=== PATIENT | female | born 1955 | race Caucasian/White ===

== ENCOUNTER 2019-07-16 12:30 | Inpatient (IN) | payer MEDICARE, SELFPAY ==
[2019-07-16] VITALS (16 sets, daily range): BP systolic 110–162; BP diastolic 70–96; PULSE 63–84; RESP 14–20; TEMP 36.4–36.6; O2SAT 95–100; BMI 21.6
--- NOTE | ~2019-07-16 | XR_ITS ---
EXAMINATION: XR chest 2V EXAM DATE: 07/16/2019 14:27 INDICATION: Chest pain, hypertension. Dizziness. TECHNIQUE: Frontal and lateral projections of the chest obtained and reviewed. There is no prior ricky dy for comparison. FINDINGS: There is bilateral pleural blunting, could be chronic pleural effusions or chronic bluntin g given the severe hyperinflation. Nodular density left lower lung zone probably chondral cartilage c alcification. Cardiomediastinal silhouette is normal. There is aortic arterial sclerosis. There is no pneumothorax suspected. There are mild bony degenerative changes. IMPRESSION: 1. Left basilar nodular density probably chondral cartilage calcification but if patient has risk fa ctors for lung cancer consider follow-up noncontrast chest CT. 2. Hyperinflation 3. Pleural blunting likely chronic, possible small effusions. 4. No acute cardiopulmonary findings suspected. Reviewed, dictated and finalized at location A. GRINDER IMPRESSION: 1. Left basilar nodular density probably chondral cartilage calcification but if patient has risk factors for lung cancer consider follow-up noncontrast ches t CT. 2. Hyperinflation 3. Pleural blunting likely chronic, possible small effusions. 4. No acute cardiopulmonary findings suspected.
--- NOTE | 2019-07-16 12:41 | ECG_ITS ---
Measurements Intervals [place] Rate: 73 P: 84 UT: 136 QRS: 21 QRSD: 78 T: 43 QT: 398 QTc: 441 Interpretive Statements SINUS RHYTHM POSSIBLE LEFT ATRIAL ENLARGEMENT BORDERLINE ECG Electronically Signed On 07-16-2019 14:47:39 OXYHYDROGEN WELDER by David Munoz D.O.
[2019-07-16 12:57] LABS: Basophils Absolute Auto 0.1 K/mm3 (0.0-0.1); Basophils Percent Auto 0.7 % (0.2-1.2); Eosinophils Percent Auto 0.4 % (0-4.4); Hematocrit 44.3 % (37.0-47.0); Immature Granulocyte Absolute 0.02 K/mm3 (0.00-0.031); Immature Granulocyte Percent A 0.2 % (0-0.5); Lymphocytes Absolute Auto 1.18 K/mm3 (0.9-3.2); Lymphocytes Percent Auto 12.5 % (18.3-44.2); Mean Corpuscular HGB Conc 31.6 g/dl (32-36); Mean Corpuscular Hemoglobin 29.1 pg (26-34); Mean Corpuscular Volume 92.1 fl (80-100); Mean Platelet Volume 9.7 fl (7.4-10.4); Monocytes Absolute Auto 0.6 K/mm3 (0.1-0.6); Monocytes Percent Auto 6.2 % (2.6-8.5); Neutrophils Absolute Auto 7.6 K/mm3 (1.3-6.7); Platelet Count Result 313 k/mm3 (150-375); Red Blood Count 4.81 M/mm3 (4.2-5.4); Red Cell Distribution Width 13.5 % (11.5-14.5); White Blood Count 9.5 K/mm3 (4.5-10.0)
[2019-07-16 13:07] LABS: Partial Thromboplastin Time 24.8 SECONDS (22.3-36.8); Prothrombin Time 12.7 Seconds (11.1-14.7)
[2019-07-16 13:09] LABS: Blood Urea Nitrogen 10 mg/dL (7-17); Calcium 9.5 mg/dL (8.4-10.2); Carbon Dioxide 27 mmol/L (22-30); Chloride 100 mmol/L (98-107); Estimated CRCL calculation 74 ml/min; Estimated Glomerular Filt Rate > 60; Glucose 120 mg/dL (65-105); Potassium 3.9 mmol/L (3.4-5.0); Sodium 139 mmol/L (137-145)
--- NOTE | 2019-07-16 14:14 | ED.CHESTPAIN ---
HPI - Chest Pain General Chief Complaint: Chest Pain Stated Complaint: CP Time Seen by Provider: 07/16/19 14:05 Source: patient and RN notes reviewed Mode of arrival: ambulatory Limitations: no limitations History of Present Illness HPI narrative: Pt is a 54 y/o female presenting to the ED c/o CP radiating to shoulder. Pt reports she started experiencing intermittent midsternal and lt sided CP radiating to rt shoulder 2 weeks ago. Pt describes the pain as 4/10 on the pain scale and dull. Pt states she last had the pain this morning after waking up around 0800 and notes it lasted for about 5 hrs before resolving. Pt also reports mild diaphoresis and dizziness described as room spinning , but denies SOB or N/V. However, currently she has no dizziness. Pt denies Hx's of HTN, HLD, DM, or any other heart problems, and states she had a negative stress test about 8 years ago after having aching chest pain that resolved. Pt states she does not regularly see a doctor and is currently a smoker. Pt notes she did not take any aspirin this morning. Pertinent past history: other (None) Onset (ago): week(s) (2) Timing of current episode: now resolved Prior episodes: Yes Pain location: substernal and left chest Pain radiation: right shoulder Quality: dull Associated symptoms: diaphoresis (Mild) and other ( room spinning dizziness) Related Data Home Medications Medication Instructions Recorded Confirmed No Home Medications 07/16/19 Allergies Allergy/AdvReac Type Severity Reaction Status Date / Time No Known Allergies Allergy Verified 07/16/19 14:55 Review of Systems Review of Systems: Narrative: Respiratory: Negative for dyspnea. Cardiovascular: Positive for midsternal and lt sided chest pain radiating to rt shoulder and mild diaphoresis. Gastrointestinal: Negative for nausea or vomiting. Neurological: Positive for room spinning dizziness. All systems reviewed & are unremarkable except as noted in HPI and below PMFSH Past Medical History Medical History No significant past medical history Surgical History Surgical History (Updated 07/16/19 @ 14:30 by Gunnar Jauregui) No significant past surgical history Social History Social History Smoking status: Current every day smoker Gender identity (if verbalized by the patient): Female Exam Narrative: Exam Narrative: Constitutional: Appears well-developed. No distress. Nose: Nose normal. Eyes: Conjunctiva are normal. Neck: Normal range of motion. Neck supple. Cardiovascular: Normal rate and regular rhythm. Pulmonary/Chest: Effort normal and breath sounds normal. Musculoskeletal: Normal range of motion. No edema. Neurological: Alert and oriented to person, place, and time. CN 2-12 intact. Motor strength 5/5 in all 4 extremities. Sensation intact throughout. Normal finger to nose. Normal heel to fox. Skin: Skin is warm. No pallor. Psychiatric: Normal mood and affect. Course Reevaluation(s) Reevaluation #1: Rechecked. Patient still feels well. She denies any chest pain or dizziness at this time. Date: 07/16/19 Time: 15:30 Consultations Consultation #1: Discussed case with Cardiology DIFFERENTIAL SPECIALIST Willa Molina. Will consult. Recommends aspirin and heparin. Admit to hospitalist. Date: 07/16/19 Time: 14:20 Consultation #2: Discussed case with Hospitalist MILO Pandya. Accepted the pt for admission. Date: 07/16/19 Time: 14:37 Vital Signs Vital signs: Vital Signs Temperature 36.6 C 07/16/19 12:53 Pulse Rate 80 07/16/19 12:53 Respiratory Rate 18 07/16/19 12:53 Blood Pressure 110/84 07/16/19 12:53 Pulse Oximetry 100 07/16/19 12:53 Temperature 36.6 C 07/16/19 12:53 Pulse Rate 80 07/16/19 12:53 Respiratory Rate 18 07/16/19 12:53 Blood Pressure 110/84 07/16/19 12:53 Pulse Oximetry 100 07/16/19 12:53 MDM - Chest Pain Lab Data Result diagrams:
[2019-07-16] MEDS: ASPIRIN 81 MG CHEWABLE TABLET 324 MG PO (14:23)
[2019-07-16] MEDS: HEPARIN SOD/D5W 100 UNITS/ML 25,000 UNITS/250 ML BAG 7 UNITS IV CONT (14:56)
[2019-07-16] MEDS: HEPARIN SODIUM 5,000 UNITS/ML VIAL 3500 UNITS IV PUSH (14:56)
--- NOTE | 2019-07-16 16:32 | ECG_ITS ---
Measurements Intervals [place] Rate: 84 P: 82 [place]: 142 QRS: 9 QRSD: 85 T: 33 QT: 382 QTc: 452 Interpretive Statements SINUS RHYTHM POSSIBLE LEFT ATRIAL ENLARGEMENT BORDERLINE ECG Electronically Signed On 07-17-2019 8:32:31 RACEBOOK WRITER by David Munoz D.O.
[2019-07-16] MEDS: METOPROLOL TARTRATE 50 MG TAB 25 MG PO (17:04)
[2019-07-16] MEDS: NITROGLYCERIN OINTMENT 1 INCH DOSE TRANSDERM ×2 (17:05→23:50)
--- NOTE | 2019-07-16 18:30 | PM.IMHP ---
H&P: HPI History of Present Illness Chief complaint: Chest pain. Narrative: Emerald Dill is a 64 year old female smoker who presented to the emergency department earlier this afternoon for evaluation of chest pain. For nearly 1 weeks time she has had intermittent chest pain, mainly in the left anterior chest that will radiate to the substernal region and even up into the right arm. It is described as a dull ache, sometimes tight, lasting upwards of 15 minutes before subsiding without intervention. For the last couple of days they have been a bit more intense and she had some mild sweats and dizziness with that today, which concerned her. She still has a mild, nagging ache in the left anterior chest, rated 2/10. Nitropaste is in place, and has not helped with the discomfort. The pain is not necessarily related to exertion. 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 She also admits that she does not regularly see a doctor and does not care for herself as she should, as much of her time is spent taking care of her disabled who had a stroke several years ago. She has not had fever, chills, or sweats. No recent cold or flu symptoms. She denies pleuritic pain and racing heart. No orthopnea, PND, or edema. She has not had nausea or vomiting. Weight has remained stable. Review of Systems Review of Systems: All systems reviewed & are unremarkable except as noted in HPI and below PMFSH Past Medical History Medical History (Updated 07/16/19 @ 22:40 by Jessika Pandya PA-C) History of kidney stones History of urinary tract infection No significant past medical history Rheumatoid arthritis Tobacco dependence Surgical History Surgical History (Updated 07/16/19 @ 22:37 by Jessika Pandya PA-C) History of section History of eye surgery Of the muscles of the right eye. Family History Family History Mother Myocardial infarct Hypertension Father Alzheimer disease Sibling AA (alcohol abuse) Heart disease Social History Social History (Updated 07/16/19 @ 22:38 by Jessika Pandya PA-C) Social History: The patient is and lives with her in [place]. 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 She designates her , Reggie, as her surrogate decision maker and she wishes to be a full code. She smokes about a pack of cigarettes per day and has for many years. She denies alcohol and drug abuse. Smoking packs per day: 1 Smoking cigarettes per day: 20.0 Years smoked: 45 Smoking pack-years: 45.00 Spiritual care concerns: No Agree to blood products: Yes Meds Home Medications and Allergies Home Medications Medication Instructions Recorded Confirmed Type No Home Medications 07/16/19 07/16/19 History Allergies Allergy/AdvReac Type Severity Reaction Status Date / Time No Known Allergies Allergy Verified 07/16/19 14:55 Vital Signs Vital Signs - 24 hr 07/16/19 12:53 07/16/19 16:00 07/16/19 17:04 Temperature 97.9 F Pulse Rate 80 73 80 Respiratory Rate 18 15 Blood Pressure 110/84 149/96 H Pulse Oximetry 100 97 07/16/19 18:06 07/16/19 19:00 07/16/19 19:06 Temperature 97.6 F Pulse Rate 67 78 64 Respiratory Rate 14 16 16 Blood Pressure 152/90 H 145/78 H 162/88 H Pulse Oximetry 96 99 98 07/16/19 19:23 07/16/19 20:18 Temperature Pulse Rate 64 74 Respiratory Rate 16 Blood Pressure Pulse Oximetry 98 Exam Narrative: Exam Narrative: General: A well-developed, thin female sitting up in bed in no acute distress. HEENT: Normocephalic, atraumatic. PERRL, EOMI. Sclerae anicteric. She is wearing glasses. Dysconjugate gaze. oral mucosa is tacky. oropharynx clear. Neck:
--- NOTE | 2019-07-16 18:40 | PM.CNCAR ---
Assessment and Plan Additional Plan 64-year-old lady with longstanding cigarette smoking and family history of coronary disease in her mother. The patient does not have any regular general medical care. She enters the hospital with intermittent chest pain this been going on for at least 5 or 6 days her electrocardiogram is totally normal but her troponin level has risen indicative of ACS/non ST elevation ME. She is currently asymptomatic. I would recommend aspirin, anticoagulation, loading with Brilinta, statin. If she remains stable she was brought to the labor conciliator for angiography on Friday morning. If she has clinical instability obviously we will proceed over the weekend. History of Present Illness History of Present Illness Consult date/time: Date of service: 07/16/19 18:40 Consult reason: chest pain Reason For Visit: nstemi Narrative: This is a 64-year-old white female that I am seeing in the emergency room while she is awaiting for a bed upstairs in IMU for admission. She came into the ED earlier this afternoon reporting Letty intermittent chest pain for about 5-6 days at least. According to the ER doctor's note she was going on for over a week. She describes episodes of a dull sometimes tight pain in the retrosternal region which would come and go without any predictability. The episodes would typically last 5-15 minutes in duration and then subside. She does miss this as nothing really important. A in the last couple of days there had been some episodes that were more intense and then they would be associated with some discomfort in the right shoulder in the right arm. There was no so she did diaphoresis nausea or air hunger. Because of the symptoms she and her discussed her the situation earlier in the day and eventually decided that she should come to the emergency department to be evaluated. In the emergency department she has had 2 electrocardiograms which are normal. Her troponin levels however have risen significantly to 6.3 indicating clear evidence of non ST elevation ME. The patient has received aspirin, beta blockers nitrates and has been systemically anticoagulated with heparin in the ED at the time of this consultation she seems to be quite comfortable. The patient says she does not see a physician regularly and has not had a physical exam by a physician in quite a few years. 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 Many years ago she used to work in the ICU here at [facility]. Review of Systems Constitutional: Constitutional: Reports no additional constitutional complaints Eyes: Eyes: Reports no additional eye complaints ENT: Reports nasal congestion Cardiovascular: Cardiovascular: Reports as per HPI and Reports chest pain Respiratory: Respiratory: Reports no additional respiratory complaints Gastrointestinal: Gastrointestinal: Reports no additional gastrointestinal complaints Musculoskeletal: Musculoskeletal: Reports no additional musculoskeletal complaints Integumentary/Breasts: Skin/Breast: Reports system reviewed and no additional complaints, except as docu Neurologic: Reports system reviewed and no additional complaints, except as documented Endocrine: Endocrine: Reports no additional endocrine complaints Hematologic/Lymphatic: Hematologic/Lymphatic: Reports no additional hematologic/lymphatic complaints PMFSH Past Medical History Medical History No significant past medical history Surgical History Surgical History (Updated 07/16/19 @ 14:30 by Gunnar Jauregui) No significant past surg
--- NOTE | 2019-07-16 19:55 | ADMGEN ---
This patient, Emerald Dill, was admitted to IMU Room 200-01 on 07/16/19 at 1906. Patient/family oriented to hospital policies and general routines including ID bracelet, bed and alarms, visiting hours, pain management, procedures, bathroom and other care routines, personal items, smoking policy, room service/diet, and visiting hours. Valuables list has been completed. Information on how to activate the Rapid Response Team has been discussed. Patient/Family are encouraged to report perceived risks to care and to ask questions if they do not understand what they are told or what they should do.
[2019-07-16] MEDS: METOPROLOL TARTRATE 25 MG TABLET PO (20:18)
[2019-07-16 21:42] LABS: Partial Thromboplastin Time 38.9 SECONDS (22.3-36.8)
[2019-07-16] MEDS: TICAGRELOR 90 MG TABLET PO (22:30)
[2019-07-16] MEDS: NITROGLYCERIN SL 0.4 MG TABLET SUBLINGUAL ×3 (22:30→22:47)
[2019-07-16] MEDS: HEPARIN SODIUM 5,000 UNITS/ML VIAL 4000 UNITS IV PUSH (22:35)
[2019-07-17] VITALS (29 sets, daily range): BP systolic 89–162; BP diastolic 59–130; PULSE 58–92; RESP 11–22; TEMP 36.5–36.6; O2SAT 90–100
[2019-07-17] MEDS: NITROGLYCERIN/D5W 200 MCG/ML 50 MG/250 ML BTL IV CONT (00:16)
--- NOTE | 2019-07-17 00:16 | PC.NURSE ---
Nitro paste removed from pt's LUE. Nitro gtt started per MD order. Pt states she is feeling chest discomfort under her left breast, rating pain 1-2 out of 10.
--- NOTE | 2019-07-17 02:05 | ADMGEN ---
This patient, Emerald Dill, was transferred to Intensive Care Unit-9 on 07/17/19 at 0010. Patient/family oriented to hospital policies and general routines including ID bracelet, bed and alarms, visiting hours, pain management, procedures, bathroom and other care routines, personal items, smoking policy, room service/diet, and visiting hours. Valuables list has been completed. Information on how to activate the Rapid Response Team has been discussed. Patient/Family are encouraged to report perceived risks to care and to ask questions if they do not understand what they are told or what they should do.
[2019-07-17 05:15] LABS: Basophils Absolute Auto 0.1 K/mm3 (0.0-0.1); Basophils Percent Auto 0.8 % (0.2-1.2); Eosinophils Absolute Auto 0.1 K/mm3 (0-0.3); Eosinophils Percent Auto 1.3 % (0-4.4); Hematocrit 41.3 % (37.0-47.0); Hemoglobin 13.1 g/dL (12.0-15.0); Immature Granulocyte Absolute 0.03 K/mm3 (0.00-0.031); Immature Granulocyte Percent A 0.3 % (0-0.5); Lymphocytes Absolute Auto 2.59 K/mm3 (0.9-3.2); Lymphocytes Percent Auto 28.4 % (18.3-44.2); Mean Corpuscular HGB Conc 31.7 g/dl (32-36); Mean Corpuscular Volume 91.4 fl (80-100); Mean Platelet Volume 9.8 fl (7.4-10.4); Monocytes Percent Auto 10.4 % (2.6-8.5); Neutrophils Absolute Auto 5.4 K/mm3 (1.3-6.7); Neutrophils Percent Auto 58.8 % (45.5-73.1); Platelet Count Result 293 k/mm3 (150-375); Red Blood Count 4.52 M/mm3 (4.2-5.4); Red Cell Distribution Width 13.4 % (11.5-14.5); White Blood Count 9.1 K/mm3 (4.5-10.0)
[2019-07-17 05:24] LABS: Partial Thromboplastin Time 80.8 SECONDS (22.3-36.8)
[2019-07-17 05:27] LABS: Alanine Aminotransferase 19 U/L (4-35); Albumin Level 3.5 g/dL (3.5-5.1); Alkaline Phosphatase 72 U/L (38-126); Aspartate Amino Transferase 93 U/L (14-36); Bilirubin,Total 0.4 mg/dL (0.2-1.3); Blood Urea Nitrogen 12 mg/dL (7-17); Carbon Dioxide 29 mmol/L (22-30); Chloride 102 mmol/L (98-107); Cholesterol 163 mg/dL (0-200); Estimated CRCL calculation 56 ml/min; Estimated Glomerular Filt Rate > 60; Glucose 110 mg/dL (65-105); HDL Direct 26 mg/dL; Magnesium 1.9 mg/dL (1.6-2.3); Potassium 3.8 mmol/L (3.4-5.0); Sodium 138 mmol/L (137-145); Triglycerides 106 mg/dL (<150)
[2019-07-17 05:38] LABS: LDL Cholesterol Direct 123 mg/dL
--- NOTE | 2019-07-17 09:18 | PM.PNCARD ---
Progress Note: A&P Assessment and Plan (1) Non-ST elevation IN (NSTEMI): Code(s): I21.4 - Non-ST elevation (NSTEMI) myocardial infarction Status: Acute Assessment and Plan: Patient with longstanding history of smoking presents with 3 day history of chest discomfort. EKG does not show any acute ST segment abnormality, troponins are elevated. She had recurrent chest discomfort last night, was transferred to ICU, and required IV nitroglycerin. Will plan on early invasive strategy with coronary angiogram with an eye towards intervention today. Patient has been initiated on standard treatment for ACS. Benefits, risks and alternatives of the procedure were discussed with the patient and she is willing to proceed. (2) Tobacco abuse: Code(s): Z72.0 - Tobacco use Status: Acute Assessment and Plan: Smoking cessation counseling was done Subjective Date/time seen: 07/17/19 09:18 Patient had chest discomfort last night and was transferred to the ICU. She was initiated on nitroglycerin IV which resulted in improvement in the chest discomfort. She has also been on dual antiplatelet therapy, and on anticoagulation with heparin. This morning, she states that she has mild residual chest discomfort. Exam Const: General: no acute distress, alert and awake HENMT: Head: normocephalic and atraumatic Ears: hearing grossly normal bilaterally and external ears normal General nose exam: Normal external nose present and no epistaxis Face and sinus: normal facial exam and no ecchymosis Mouth: Yes tongue normal and Yes moist mucous membranes Teeth and gingiva: dentition normal Eyes: Conjunctivae: conjunctivae normal Sclera: sclerae normal Pupils: Equal, round and reactive pupils present EOM: EOMs intact bilaterally Neck: Neck: normal visual inspection, supple and no JVD Thyroid: thyroid normal Carotids: normal carotid upstroke Resp: Effort & Inspection: normal respiratory effort and able to speak in complete sentences Other: Decreased breath sounds globally Cardio: Jugular venous distension: no JVD Rate: regular rate Rhythm: regular rhythm Heart sounds: S1 normal heart sound present, S2 normal heart sound present and no murmurs GI: Inspection: normal to inspection GI Palp: No abdominal tenderness Auscultation: normal bowel sounds Skin: Other: no rash on exposed areas, no cyanosis Neuro: Cranial nerves: Yes Equal, round and reactive pupils present and Yes Normal hearing present Other: alert, oriented, no major focal deficits on gross neurological examination Extrem: Other: no edema, no cyanosis, no major deformities Psych: Appearance: grossly normal Mental Status: mental status grossly normal Objective Data Vital Signs Vital Signs: Vital Signs - 24 hr 07/16/19 12:53 07/16/19 16:00 07/16/19 17:04 Temperature 36.6 C Pulse Rate 80 73 80 Respiratory Rate 18 15 Blood Pressure 110/84 149/96 H Pulse Oximetry 100 97 07/16/19 18:06 07/16/19 19:00 07/16/19 19:06 Temperature 36.4 C Pulse Rate 67 78 82 Respiratory Rate 14 16 16 Blood Pressure 152/90 H 145/78 H 162/88 H Pulse Oximetry 96 99 98 07/16/19 19:23 07/16/19 20:18 07/16/19 20:36 Temperature Pulse Rate 64 74 84 Respiratory Rate 16 Blood Pressure Pulse Oximetry 98 07/16/19 22:00 07/16/19 22:25 07/16/19 22:37 Temperature Pulse Rate 79 63 65 Respiratory Rate 20 20 Blood Pressure 144/87 H 128/74 Pulse Oximetry 98 97 07/16/19 22:47 07/16/19 22:50 07/16/19 23:35 Temperature 36.6 C Pulse Rate 65 68 72 Respiratory Rate 20 16 16 Blood Pressure 124/70 143/78 H 135/82 Pulse Oximetry 96 95 100 07/16/19 23:37 07/17/19 00:12 07/17/19 00:14 Temperature 36.6 C 36.6 C Pulse Rate 72 70 71 Respiratory Rate 16 17 Blood Pressure 135/82 143/85 H Pulse Oximetry 100 100 07/17/19 02:00 07/17/19 04:00 07/17/19 06:00 Temperature 36.6 C Pulse Rate 61 58 L 65 Respiratory Rate 14 16 18 Blood P
--- NOTE | 2019-07-17 09:20 | WPDMODSED ---
Moderate Sedation Note-Pt Data Patient Data Allergies Allergy/AdvReac Type Severity Reaction Status Date / Time No Known Allergies Allergy Verified 07/16/19 14:55 Home Medications Medication Instructions Recorded Confirmed Type No Home Medications 07/16/19 07/16/19 History Current Medications: Active Medications Aspirin (Aspirin Ec) 81 mg PO QAM [facility] Heparin Sodium (Porcine) (Heparin Sodium) 4,000 units IV PUSH PRN PRN PRN Reason: aPTT less than 55 seconds Last Admin: 07/16/19 22:35 Dose: 4,000 units Documented by: Heparin Sodium (Porcine) (Heparin Sodium) 2,000 units IV PUSH PRN PRN PRN Reason: aPTT 55 - 70 seconds Heparin Sodium/Dextrose (Heparin Sodium/D5w 100 Units/Ml) 25,000 units in 250 mls @ 9 mls/hr IV CONT .Q24H STA; Protocol Stop: 07/17/19 14:31 Last Infusion: 07/17/19 05:14 Dose: 900 units/hr, 9 mls/hr Documented by: Nitroglycerin/Dextrose (Nitroglycerin In 5% Dextrose 50 Mg) 50 mg in 250 mls @ 7.5 mls/hr IV CONT .Q24H JARAD; Protocol Last Titration: 07/17/19 07:38 Dose: 25 mcg/min, 7.5 mls/hr Documented by: Metoprolol Tartrate (Lopressor) 25 mg PO Q12HR JARAD Last Admin: 07/16/19 20:18 Dose: 25 mg Documented by: Nitroglycerin (Nitrostat Subl 0.4 Mg (1/150)) 0.4 mg SUBLINGUAL Q5MIN PRN PRN Reason: Chest Pain Last Admin: 07/16/19 22:47 Dose: 0.4 mg Documented by: Rosuvastatin Calcium (Crestor) 10 mg PO QAM [facility] Ticagrelor (Brilinta) 90 mg PO Q12HR JARAD Last Admin: 07/16/19 22:30 Dose: 90 mg Documented by: Sedation/Anesthesia: No previous sedation/anesthesia problems (including family history). [facility] Past Medical History Medical History (Updated 07/17/19 @ 09:19 by Silvano Sanabria MD) History of kidney stones History of urinary tract infection No significant past medical history Rheumatoid arthritis Tobacco dependence Surgical History Surgical History (Updated 07/16/19 @ 22:37 by Jessika Pandya PA-C) History of section History of eye surgery Of the muscles of the right eye. Family History Family History Mother Myocardial infarct Hypertension Father Alzheimer disease Sibling AA (alcohol abuse) Heart disease Social History Social History (Updated 07/16/19 @ 22:38 by Jessika Pandya PA-C) Social History: The patient is and lives with her in [place]. 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 She designates her , Reggie, as her surrogate decision maker and she wishes to be a full code. She smokes about a pack of cigarettes per day and has for many years. She denies alcohol and drug abuse. Smoking packs per day: 1 Smoking cigarettes per day: 20.0 Years smoked: 45 Smoking pack-years: 45.00 Spiritual care concerns: No Agree to blood products: Yes Mod Sed Physical Exam Physical Exam Pre Procedural Exam: Normal: Airway Hours since solid foods: 8 Hours since liquid intake: 8 Internal Medicine - PN: Obj Da Vital Signs Vital Signs: Vital Signs - 24 hr 07/16/19 12:53 07/16/19 16:00 07/16/19 17:04 Temperature 36.6 C Pulse Rate 80 73 80 Respiratory Rate 18 15 Blood Pressure 110/84 149/96 H Pulse Oximetry 100 97 07/16/19 18:06 07/16/19 19:00 07/16/19 19:06 Temperature 36.4 C Pulse Rate 67 78 82 Respiratory Rate 14 16 16 Blood Pressure 152/90 H 145/78 H 162/88 H Pulse Oximetry 96 99 98 07/16/19 19:23 07/16/19 20:18 07/16/19 20:36 Temperature Pulse Rate 64 74 84 Respiratory Rate 16 Blood Pressure Pulse Oximetry 98 07/16/19 22:00 07/16/19 22:25 07/16/19 22:37 Temperature Pulse Rate 79 63 65 Respiratory Rate 20 20 Blood Pressure 144/87 H 128/74 Pulse Oximetry 98 97 07/16/19 22:47 07/16/19 22:50 07/16/19 23:35 Temperature 36.6 C Pulse Rate 65 68 72 Respiratory Rate 20 16 16 Blood Pressure 124/70 143/78 H 135/
[2019-07-17 11:20] LABS: Partial Thromboplastin Time 56.6 SECONDS (22.3-36.8)
[2019-07-17] MEDS: METOPROLOL TARTRATE 25 MG TABLET PO ×2 (12:23→22:01)
[2019-07-17] MEDS: ASPIRIN 81 MG ENTERIC TABLET PO (12:23)
[2019-07-17] MEDS: ROSUVASTATIN 10 MG TABLET PO (12:23)
[2019-07-17] MEDS: TICAGRELOR 90 MG TABLET PO (12:24)
[2019-07-17] MEDS: HEPARIN SODIUM 5,000 UNITS/ML VIAL 2000 UNITS IV PUSH (12:45)
--- NOTE | 2019-07-17 14:06 | WPDCNINT ---
Assessment and Plan Assessment and plan (1) Non-ST elevation AK (NSTEMI): Code(s): I21.4 - Non-ST elevation (NSTEMI) myocardial infarction Status: Acute Assessment and Plan: Troponin was found to be elevated at the time of presentation. Troponin level significantly increased and peaked at 30. Now troponin has been trending down. EKG was negative for any acute ST changes. Cardiology has been consulted is going to do cardiac catheterization sometime today. She has been on aspirin and Brilinta. Will continue metoprolol. Will continue statin as well. She is currently on nitroglycerin drip which will continue until she gets her cardiac catheterization. (2) Tobacco dependence: Code(s): F17.200 - Nicotine dependence, unspecified, uncomplicated Status: Acute Assessment and Plan: Smoking cessation has been advised. (3) Abnormal chest x-ray: Code(s): R93.89 - Abnormal findings on diagnostic imaging of other specified body structures Status: Acute Assessment and Plan: Chest x-ray and nodular density in the left base was noted. She does have significant smoking history. She will need to have a noncontrast CT but would hold off until she gets her cardiac catheterization. We can potentially get it done tomorrow before discharge. She does not follow with a physician very often and she may be lost to follow-up if the chest CT is not performed as an inpatient. Additional Plan Her clinical status has been discussed with her in detail. Critical care time 33 minutes Due to a high probability of clinically significant, life threatening deterioration, the patient required my highest level of preparedness to intervene emergently and I personally spent this critical care time directly and personally managing the patient. This critical care time included obtaining a history; examining the patient; pulse oximetry; ordering and review of studies; arranging urgent treatment with development of a management plan; evaluation of patient's response to treatment; frequent reassessment; and discussions with other providers. It was exclusive of separately billable procedures and treating other patients and teaching time. Please see Assessment and Plan section and the rest of the note for further information on patient assessment and treatment. 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 She has been having intermittent chest pain for the last 1 week or so which is mainly the in the left anterior chest which radiates to the substernal region. It is a dull ache lasting for 15 minutes and subsides without intervention. She denied have any aggravating or relieving factors. For the last 2 days it has been no more intense and associated with mild sweating and dizziness. Nitro paste and did not improve her symptoms. She denied it to be with any exertion. 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 She denied to have any fever chills cough abdominal pain nausea vomiting urinary symptoms orthopnea PND and lower extremity edema. She does not follow with a physician very regularly. Review of Systems Review of Systems: Narrative: A comprehensive review of systems has been reviewed with the patient and most of the symptoms are negative except the one's mentioned above in HPI. [facility] Past Medical History Medical History (Updated 07/17/19 @ 09:19 by Silvano Sanabria MD) History of kidney stones History of urinary tract infection No significant past medical history Rheumatoid arthritis Tobacco dependence Surgical History Surgical History (Updated 07/16/19 @ 22:37 by Jessika Pandya PA-C) History of
[2019-07-17 15:34] LABS: Activated Clotting Time 235 sec (74-137)
--- NOTE | 2019-07-17 15:38 | WPDCARDPROC ---
Cardiac Cath Procedure Note Date of procedure:: 07/17/19 Performing physician:: Silvano Sanabria MD Indication:: Non ST-elevation myocardial infarction Brief clinical history:: 64-year-old female with no known prior cardiac history; history of heavy tobacco abuse was admitted to [facility] on 06/15/2019 with 3 day history of anginal chest pain. Her EKG did not show any significant ST-T abnormalities, however troponins were elevated consistent with non ST elevation NV. She was seen by cardiology service yesterday evening and was initiated on treatment for ACS including dual antiplatelet therapy with aspirin and ticagrelor; anticoagulation with heparin. Overnight, patient had worsening chest discomfort, was initiated on nitroglycerin IV and was transferred to the ICU. Today, patient had mild residual discomfort. Due to patient's ongoing symptoms, she was brought to the test lab technician for early invasive strategy with coronary angiogram. Procedure Procedure note:: LEFT HEART CATHETERIZATION, CORONARY ANGIOGRAM AND INTERVENTION REPORT PROCEDURES PERFORMED: 1. Left heart catheterization- Selective left and right coronary angiogram; left ventriculogram and hemodynamic assessment 2. Intravascular ultrasound (IVUS) of left main coronary artery 3. IFR of proximal-mid RCA 4. Selective right common femoral angiogram 3. Moderate sedation-CPT code 11745 MODERATE SEDATION: Midazolam 1 mg; fentanyl 25 mcg; Start time 1451 , Stop time 1529 ; Total [id number] time 38 minutes; Heron Stevens RN was trained observer for moderate sedation. ACCESS SITE: Right common femoral artery PROCEDURE NOTE: After obtaining informed consent, patient was brought to catheterization lab and prepped and draped in a usual sterile manner. After local anesthesia with lidocaine, right common femoral artery access was taken with micropuncture needle followed by insertion of a 6 [place]ican sheath. Selective left and right coronary angiogram was performed using 5 [place] JL4 and JR4 catheters respectively. Orthogonal views were taken. Next, a 5 [place] pigtail catheter was advanced in the LV cavity and was flushed with normal saline. LV pressure measurement was performed. After this, left ventriculogram was performed. The catheter was flushed again, and gradient across the aortic valve was measured on the pullback of the catheter. Finally, selective right common femoral angiogram was performed followed by successful deployment of Angio-Seal vascular closure device. Patient tolerated procedure well without any immediate procedure related complications. FINDINGS: LEFT MAIN CORONARY: the left main coronary artery is a medium caliber vessel with about 50-70% stenosis in the distal most segment. The vessel bifurcates into LAD and left circumflex branches. LEFT ANTERIOR DESCENDING ARTERY: The LAD is a medium caliber vessel in the proximal segment with minor irregularities. There is about 40-50% stenosis in the mid segment at the origin of diagonal branch. The LAD is tortuous, tapers distally and reaches the LV apex. Diffuse calcification is seen in the proximal and mid LAD. Major diagonal branch has moderate ostial narrowing. LEFT CIRCUMFLEX ARTERY: The left circumflex artery is a medium size vessel, essentially continues as OM branch. There is mild diffuse disease in the proximal and mid segment. The proximal segment of the OM branch has 30-40% stenosis; mid segment has diffuse upto 70% stenosis. RIGHT CORONARY ARTERY: the right coronary artery is a medium to large caliber, dominant vessel. There is diffuse about 50% stenosis in the proximal segment; aneurysmal segment is seen in the mid segment just proximal to the origin of the RV marginal branch with a poorly defined stenosis in the aneurysmal segment. The distal segment has minor irregularities. PDA and PLV branches are medium caliber vessels with mild diffuse disease in the Proximal RPDA. LEFT VENTRICULOGRAM: overall LV sy
--- NOTE | 2019-07-17 16:27 | PM.TDS ---
Transfer Discharge Sum: Prov Provider Date of admission: 07/16/19 14:42 Primary care physician: BODY JOINER PHYSICIAN Admitting clinician: Deepak Judge MD Consults: 07/16/19 Care Coordination Consult Routine Comment: Pt would like information regarding POA/advance di Reason for Consult:: Advanced Directives 07/16/19 14:44 Consult to Physician Routine Comment: Consulting Provider: Aaron Parrish calliope player/MD group to consult: jacqueline piper notified Reason for consultation: chest pain, abnormal troponin Has provider been notified: Yes DS: Diagnosis Admitting Diagnosis Admitting Diagnosis: Non-ST elevation (NSTEMI) myocardial infarction Transfer Discharge Sum: Med Medications Active and Home Medications: Home Medications No Home Medications 07/16/19 [History Confirmed 07/16/19] Active Medications Aspir[facility]in Ec) [facility] [place] Last Admin: 07/17/19 12:23 Dose: 81 mg Documented by: Heparin Sodium (Porcine) (Heparin Sodium) 4,000 units IV PUSH PRN PRN PRN Reason: aPTT less than 55 seconds Last Admin: 07/16/19 22:35 Dose: 4,000 units Documented by: Heparin Sodium (Porcine) (Heparin Sodium) 2,000 units IV PUSH PRN PRN PRN Reason: aPTT 55 - 70 seconds Last Admin: 07/17/19 12:45 Dose: 2,000 units Documented by: Nitroglycerin/Dextrose (Nitroglycerin In 5% Dextrose 50 Mg) 50 mg in 250 mls @ 7.5 mls/hr IV CONT .Q24H [facility]; Protocol Last Titration: 07/17/19 07:38 Dose: 25 mcg/min, 7.5 mls/hr Documented by: Sodium Chloride (Normal Saline Iv) 1,000 mls @ 125 mls/hr IV CONT .Q8H ONE Stop: 07/18/19 00:01 Metoprolol Tartrate (Lopressor) 25 mg PO Q12HR [facility] Last Admin: 07/17/19 12:23 Dose: 25 mg Documented by: Nitroglycerin (Nitrostat Subl 0.4 Mg (1/150)) 0.4 mg SUBLINGUAL Q5MIN PRN PRN Reason: Chest Pain Last Admin: 07/16/19 22:47 Dose: 0.4 mg Documented by: Rosuvastatin Calcium (Crestor) [facility] [place] Last Admin: 07/17/19 12:23 Dose: 10 mg Documented by: Ticagrelor (Brilinta) 90 mg PO Q12HR [facility] Last Admin: 07/17/19 12:24 Dose: 90 mg Documented by: Transfer Discharge Sum: Hosp Hospital Course Hospital course: Emerald Dill is a 64 year old female with history of heavy smoking coronary artery disease patient presented emergency department with a 2 days history of chest pain patient was found to have non STEMI patient was seen by teaching fellow ACS protocol was was initiated with due anti-platelet therapy with aspirin and ticagrelor and anticoagulated with heparin, during night patient symptoms got worsen and was started from nitro drip and transferred to ICU, today patient was seen by teaching fellow and was taken to the cardiac electrical laboratory technician and patient had a cardiac catheterization the patient has severe coronary artery disease was not amendable to Angiography and stents and will require cardiothoracic surgeon evaluation please see the operative report from the teaching fellow for details, patient is being transferred to [facility] Time Spent with Patient Time attestation: Total time spent providing and/or coordinating transfer services: Patient was seen and examined at the time of the discharge Condition at discharge is stable Code status: Full code. Time spent preparing discharge summary, discharge medications, discussing discharge planning with case technician and patient is 35 minutes. Exam Const: General: comfortable and no acute distress HENMT: General nose exam: Normal nares present Mouth: Yes moist mucous membranes Eyes: General: appearance normal, both eyes and all related structures Sclera: sclerae normal Neck: Neck: supple Resp: Effort & Inspection: normal respiratory effort Auscultation: clear to auscultation bilaterally Cardio: Rate: regular rate Rhythm: regular rhythm Skin: General skin exam: normal color and no rashes or lesions noted Neuro: Speech: normal speech Sensory Exam: normal sensation Extrem: General:
[2019-07-17 17:29] LABS: Partial Thromboplastin Time > 200.0 SECONDS (22.3-36.8)
[2019-07-17 19:57] LABS: Partial Thromboplastin Time 31.2 SECONDS (22.3-36.8)
[2019-07-17] MEDS: ACETAMINOPHEN 325 MG TABLET 650 MG PO (22:00)
--- NOTE | 2019-07-17 22:05 | PC.NURSE ---
Pt to transfer to [facility] room 320. Report called to RICKY Johnson at [phone].
--- NOTE | 2019-07-17 22:50 | PC.NURSE ---
veena Howellmalthouse laborer from [facility] called ICU. States they will accept the pt after she has been on bedrest for four hours. Pt, charge nurse, and Roly curielmalthouse laborer made aware of situation.
[2019-07-18] VITALS: BP 121/71; PULSE 52; PULSE 67; RESP 20; TEMP 36.4; O2SAT 99
[2019-07-18 01:00] VITALS: BP 95/69; PULSE 64; RESP 24; O2SAT 93
[2019-07-18 02:00] VITALS: BP 102/61; PULSE 62; RESP 13; O2SAT 95
[2019-07-18 03:00] VITALS: BP 117/74; PULSE 63; RESP 14; O2SAT 97
[2019-07-18 04:00] VITALS: BP 125/69; PULSE 62; PULSE 71; RESP 20; TEMP 36.4; O2SAT 98
--- NOTE | 2019-07-18 04:33 | PC.NURSE ---
[facility] here to transport pt to E room 320. RICKY Johnson notified that pt is leaving [place] at this time.
== END 2019-07-18 04:34 | disposition short-term general hospital (02) | DRG 282 ==
LOC: ANHED 14:58 → ANHIMU 22:45 → ANHICU 07-17 09:30 → ANHIMU 07-21 11:00
PROVIDERS: Internal Medicine; Internal Medicine Cardiovascular Disease; Internal Medicine Critical Care Medicine; Physician Assistant; Admitting Provider Internal Medicine; Emergency Provider Emergency Medicine; Visit Provider Family Medicine
PROC: 4A023N7 Measurement of Cardiac Sampling and Pressure, Left Heart, Percutaneous Approach (ICD-10-PCS; CPT 93452; principal; 2019-07-17 14:15)
PROC: 4A033BC Measurement of Arterial Pressure, Coronary, Percutaneous Approach (ICD-10-PCS; CPT 93571; 2019-07-17 14:15)
PROC: 4A023N7 Measurement of Cardiac Sampling and Pressure, Left Heart, Percutaneous Approach (ICD-10-PCS; 2019-07-17 14:15)
DX: I21.4 Non-ST elevation (NSTEMI) myocardial infarction (principal); F17.210 Nicotine dependence, cigarettes, uncomplicated; Z87.442 Personal history of urinary calculi; Z87.440 Personal history of urinary (tract) infections; M06.9 Rheumatoid arthritis, unspecified; I25.10 Atherosclerotic heart disease of native coronary artery without angina pectoris
CPT/HCPCS: 36415; 71046; 80048; 80061; 80076; 83735; 84484; 85025; 85610; 85730; 92978; 93005; 93458; 93571; 96365; 96366; 99285; A9270; C1753; C1769; C1887; J1644; J2250; J3010; J7040

== ENCOUNTER 2019-10-16 10:15 | Outpatient (CLI) | payer MEDICARE, SELFPAY ==
--- NOTE | ~2019-10-16 | CT_ITS ---
EXAMINATION: CT chest wo con DATE: 10/16/2019 10:47 INDICATION: Nodular density projecting over the left lung base on 07/16/2019 AP chest TECHNIQUE: Computed tomography (CT) of the chest was performed without intravenous contrast. Automate d exposure control and iterative reconstruction technique were employed. Exam dose: 133.49 mGy-cm to pam exam DLP. COMPARISON: 07/16/2019 AP and lateral chest FINDINGS: Moderate emphysema. No pulmonary mass lesion is detected. There is bilateral apical scarri ng. There is small pulmonary granuloma in the lateral aspect of the right lower lobe (series 4 image 89). No pulmonary infiltrate or consolidation. There is scarring at the left lung base. The previously reported density overlying the left lung bases consistent with costal cartilage calcif ication. Normal heart size. There is aortic, great vessel and coronary artery calcification. No hilar or media stinal mass lesion or lymphadenopathy. No thoracic aortic aneurysm. Status post sternotomy. Healed anterior left second and third rib fractures. IMPRESSION: No suspicious pulmonary mass lesion Emphysema Reviewed, dictated and finalized at [facility]. Reviewed, dictated and finalized at location [facility].
== END 2019-10-16 10:16 | disposition home or self-care (01) ==
PROVIDERS: PCP Family Medicine; Visit Provider Family Medicine
DX: J43.9 Emphysema, unspecified (principal)
CPT/HCPCS: 71250

== ENCOUNTER 2020-05-31 09:59 | Outpatient (CLI) | payer MEDICARE, SELFPAY ==
--- NOTE | 2020-06-01 06:36 | WPDPFTINT ---
PFT Interpretation This is a pulmonary function test with pre and post-bronchodilator spirometry, plethysmography and diffusing capacity. The test was performed and results interpreted in accordance with the 2019 and 2005 ATS/ERS Task Force guidelines respectively using the Brian/Saima reference equations. Findings: Spirometry: There is decreased maximal expiratory airflow at all lung volumes with a concave expiratory flow tracing. The pre-bronchodilator FVC is 1.71 L, 61% predicted. The pre-bronchodilator FEV1 is 0.77 L, 38% predicted. The FEV1:FVC ratio is 45%. The post-bronchodilator FVC is 2.36 L, representing a 38% increase. The post-bronchodilator FEV1 is 0.92 L, representing 150 mL or 20% increase. Plethysmography: The total lung capacity is 5.28 L, 114% predicted. The functional residual capacity is 4.19 L, 140% predicted. The residual volume is 3.57 L, 196% predicted. Diffusing capacity: The absolute diffusing capacity is 8.6, 57% predicted. The diffusing capacity corrected for alveolar volume is 3.23, 88% predicted. Impression: There is a severe obstructive abnormality with significant improvement after inhaling a single dose of albuterol. The increase in residual volume is consistent with air trapping from an obstructive abnormality. Hyperinflation is present is demonstrated by the increase in functional residual capacity and is consistent with an obstructive abnormality. The absolute diffusing capacity is moderately decreased but normalizes when corrected for alveolar volume. There are no prior studies for comparison.
== END 2020-05-31 10:00 | disposition home or self-care (01) ==
PROVIDERS: PCP Family Medicine; Visit Provider Family Medicine
DX: J43.9 Emphysema, unspecified (principal); R94.2 Abnormal results of pulmonary function studies
CPT/HCPCS: 94060; 94726; 94729

== ENCOUNTER → 2020-10-20 11:34 | Outpatient (CLI) | payer MEDICARE, SELFPAY ==
--- NOTE | ~2020-10-20 | CT_ITS ---
EXAMINATION:CT lung screening DATE: 10/20/2020 11:51 INDICATION: Personal history of tobacco dependence. Current smoker with 40 pack year history. TECHNIQUE: Computed tomography (CT) of the chest was performed without intravenous contrast. Automate d exposure control and iterative reconstruction technique were employed. The dose-length product (DLP ) was 34.77 mGy-cm. COMPARISON: Chest CT 10/16/2019 FINDINGS: There is moderate emphysema. There is a 3 mm nodule in right lower lobe without change. The re is a 5 mm nodule left upper lobe without change. There is a 4 mm nodule in right upper lobe withou t change. There are a few other scattered 2 to 3 mm nodules. No pleural effusion. The heart size is n ormal. There are coronary artery calcifications. There are changes of coronary artery bypass grafting . There is a 3 mm stone in left kidney. There is moderate thoracic spondylosis. IMPRESSION: 1. Lung-RADS category 2: Benign appearance or behavior. Continue annual screening with noncontrast lo w-dose chest CT in 12 months. Reviewed, dictated and finalized at location [facility]. IMPRESSION: 1. Lung-RADS category 2: Benign appearance or behavior. Continue annual screeni ng with noncontrast low-dose chest CT in 12 months.
== END ==
PROVIDERS: PCP Family Medicine; Visit Provider Family Medicine
DX: Z12.2 Encounter for screening for malignant neoplasm of respiratory organs (principal); Z87.891 Personal history of nicotine dependence
CPT/HCPCS: 71271

== ENCOUNTER → 2022-01-16 14:44 | Outpatient (CLI) | payer MEDICARE, SELFPAY ==
--- NOTE | ~2022-01-16 | DEXA_ITS ---
Bone Density Report Name: DEBORAH OLSON Age: 66 Sex: Female Ethnicity: White Date of : 1955 Indication: postmenopausal; screening for osteoporosis; asthma or emphysema; Referring Provider: Lebron Sorto Study: Bone densitometry was performed. Exam Date: January 16, 2022 Accession number: [id number] Bone Density: Region BMD T-score Z-score Classification AP Spine (L1-L4) 0.861 -1.7 0.3 Osteopenia Femoral Neck (Left) 0.662 -1.7 0.0 Osteopenia Total Hip (Left) 0.741 -1.6 -0.2 Osteopenia Femoral Neck (Right) 0.666 -1.6 0.1 Osteopenia Total Hip (Right) 0.722 -1.8 -0.4 Osteopenia Total Hip Mean 0.732 -1.7 -0.3 Osteopenia World Health Organization criteria for BMD impression classify patients as: Normal (T-score at or above -1.0), Osteopenia (T-score between -1.0 and -2.5), or Osteoporosis (T-score at or below -2.5). 10-year Fracture Risk(1): Major Osteoporotic Fracture 8.5% Hip Fracture 2.2% Reported Risk Factors: [place] (), Neck BMD=0.666, BMI=18.1, smoking (1) FRAX(R) Version 3.08. Fracture probability calculated for an untreated patient. Fracture probability may be lower if the patient has received treatment. Clinical Information Provided by Patient: Smokes Has the following medical conditions: Asthma or Emphysema Patient maximum height was 63 Menopause Age: 43 Does not regularly consume dairy products Drinks caffeinated beverages Onset of menses at age 11 Number of children 2 Impression: The patient has low bone mass, based on the Right Total Hip T-score. The patient has an estimated ten-year risk of hip fracture of 2.2% and an estimated ten-year risk of major fracture of 8.5%, based on the WHO FRAX algorithm. The patient has risk factors, including: smoking. Discussion: BONE DENSITY IS LOW AT ONE OR MORE SKELETAL SITES. This patient's lowest T-score is low at one or more skeletal sites. It meets the World Health Organization's (WHO) criteria for ?low bone mass? (T-score between -1.0 and -2.5). The patient's 10-year risk of fracture as calculated by FRAX is less than the threshold where pharmacological therapy is recommended by the National Osteoporosis Foundation (NOF). However, all treatment decisions require clinical judgment and consideration of individual patient factors, including patient preferences, comorbidities, previous drug use, risk factors not captured in the FRAX model (e.g., frailty, falls, vitamin D deficiency, increased bone turnover, interval significant decline in bone density) and possible under or overestimation of fracture risk by FRAX. The patient should follow a healthful lifestyle (good nutrition with adequate calcium and vitamin D, and appropriate weight-bearing exercise). Follow-Up: Consider repeating this study in 2 to 3 years to reasses
--- NOTE | ~2022-01-16 | MM_ITS ---
EXAMINATION: MM screening gricelda BI w abby HISTORY: Screening TECHNIQUE: Craniocaudal and mediolateral oblique 3-D tomosynthesis images were obtained and synthetic 2-D images were generated. CAD analysis was submitted and interpreted. COMPARISON: No prior mammogram is available for comparison at this institution. BREAST PARENCHYMAL COMPOSITION: The breasts are extremely dense, which lowers the sensitivity of mamm ography. FINDINGS: There is no evidence of suspicious mass, calcification, or architectural distortion to sugg est malignancy in either breast. There has been no suspicious interval change. IMPRESSION: 1. No mammographic evidence of malignancy. 2. Recommend routine screening mammography in one year. BI-RADS Category 1: Negative Reviewed, dictated and finalized at location [facility].
== END ==
PROVIDERS: PCP Family Medicine; Visit Provider Family Medicine
DX: Z12.31 Encounter for screening mammogram for malignant neoplasm of breast (principal); Z78.0 Asymptomatic menopausal state; M85.89 Other specified disorders of bone density and structure, multiple sites
CPT/HCPCS: 77063; 77067; 77080

== ENCOUNTER → 2023-03-03 13:51 | Outpatient (CLI) | payer MEDICARE, SELFPAY ==
--- NOTE | ~2023-03-03 | CT_ITS ---
EXAMINATION: CT lung screening DATE: 03/03/2023 14:04 INDICATION: Personal history of tobacco dependence TECHNIQUE: Computed tomography (CT) of the chest was performed without intravenous contrast. The dose -length product was 36.10 mGy-cm. Automated exposure control and iterative reconstruction technique w ere employed. COMPARISON: CT dated 10/21/2019 FINDINGS: There is atherosclerosis of the aorta, great vessels and coronary arteries. No significant pleural or pericardial effusions. There is left renal atrophy. There are nonobstructing left renal st ones. No thoracic lymphadenopathy. No significant pleural or pericardial effusion. There is emphysema . There are stable bilateral pulmonary nodules measuring 4 mm or less. No endobronchial lesions. No p neumothorax. Chronic blunting of the left lateral costophrenic recess, likely pleural thickening/scar ring. IMPRESSION: 1. Lung-RADS category 2: Benign appearance or behavior. Continue annual screening with noncontrast lo w-dose chest CT in 12 months. Reviewed, dictated and finalized at location [facility]. IMPRESSION: 1. Lung-RADS category 2: Benign appearance or behavior. Continue annual screeni ng with noncontrast low-dose chest CT in 12 months.
== END ==
PROVIDERS: PCP Family Medicine; Visit Provider Family Medicine
DX: Z12.2 Encounter for screening for malignant neoplasm of respiratory organs (principal); F17.210 Nicotine dependence, cigarettes, uncomplicated
CPT/HCPCS: 71271

== ENCOUNTER 2024-05-11 12:16 | Outpatient (CLI) | payer MEDICARE, SELFPAY ==
--- NOTE | ~2024-05-11 | MM_ITS ---
EXAMINATION: MM screening gricelda BI w abby HISTORY: Screening TECHNIQUE: Craniocaudal and mediolateral oblique 3-D tomosynthesis images were obtained and synthetic 2-D images were generated. CAD analysis was submitted and interpreted. COMPARISON: 01/16/2022 BREAST PARENCHYMAL COMPOSITION: Dense: The breasts are extremely dense, which lowers the sensitivity of mammography. FINDINGS: There is no evidence of suspicious mass, calcification, or architectural distortion to sugg est malignancy in either breast. There has been no suspicious interval change. IMPRESSION: 1. No mammographic evidence of malignancy. 2. Recommend routine screening mammography in one year. BI-RADS Category 1: Negative Reviewed, dictated and finalized at location [facility]. HOP
== END 2024-05-11 12:17 | disposition home or self-care (01) ==
PROVIDERS: PCP Family Medicine; Visit Provider Physician Assistant
DX: Z12.31 Encounter for screening mammogram for malignant neoplasm of breast (principal)
CPT/HCPCS: 77063; 77067

== ENCOUNTER 2024-05-13 12:20 | Outpatient (CLI) | payer MEDICARE, SELFPAY ==
--- NOTE | ~2024-05-13 | CT_ITS ---
CT Scan of the Chest without Contrast: Clinical Indication: Lung cancer screening, nicotine dependence Technique: Contiguous sections were acquired throughout the chest without intravenous contrast. Dose reduction technique was used on this scan by utilizing automated exposure control and iterative recon struction technique. The dose-length product (DLP) was 34.05 mGy-cm. COMPARISON: 03/03/2023 Findings: There is no evidence of any significant mediastinal, hilar or axillary lymphadenopathy. The mediastin al soft tissues appear normal. There is no evidence of pleural or pericardial effusion. There is moderate emphysema. There is linear bibasilar scarring. A few tiny pulmonary nodules are pre sent. Images through the upper abdomen reveal stable possible left renal mass. Impression: Lung RADS 2: Benign appearance. 12 month follow-up screening CT advised. Reviewed, dictated and finalized at [facility]. PROCESSING SUPERVISOR Impression: Lung RADS 2: Benign appearance. 12 month follow-up screening CT advised.
== END 2024-05-13 12:21 | disposition home or self-care (01) ==
LOC: MICIMG 12:21
PROVIDERS: PCP Family Medicine; Visit Provider Physician Assistant
DX: Z12.2 Encounter for screening for malignant neoplasm of respiratory organs (principal); Z87.891 Personal history of nicotine dependence
CPT/HCPCS: 71271